=== PATIENT | male | born 1990 | race American Indian/Alaskan Native ===

== ENCOUNTER 2020-07-28 18:36 | Emergency (ER) | payer BC ==
[2020-07-28 18:59] VITALS: BP 163/102
[2020-07-28] MEDS ORDERED: ACETAMINOPHEN 500 MG TAB PO ONE (19:02)
--- NOTE | 2020-07-28 19:54 | Event Note ---
ED Screening Note Date of service: 07/28/20 Time: 19:50 ED Screening Note: Pt is 30 y/o aam with hx of Cataracts to right eye who presents for blurred vision right eye worsening for past 3 days, pt denies fever , chills, no dizziness, no light headedness, no n/v, denies trauma, has not seen opht halmologist in past year. states headache is 7/10 right frontal readiatng to right eye This initial assessment/diagnostic orders/clinical plan/treatment(s) is/are subject to change based on patients health status, clinical progression and re- assessment by fellow clinical providers in the ED. Further treatment and workup at subsequent clinical providers discretion. Patient/guardian urged not to elope from the ED as their condition may be serious if not clinically assessed and managed. Initial orders include: CT Head, Tylenol
--- NOTE | 2020-07-28 20:03 | Cat Scan Report ---
CT head/brain wo con INDICATION: decreased vision headache. TECHNIQUE: Routine CT head. All CT scans at this location are performed using CT dose reduction for A RALPH by means of automated exposure control. COMPARISON: None. FINDINGS: Intracranial: Ruiz-white matter differentiation is maintained. No intracranial hemorrhage. No extra a xial collection. No hydrocephalus. No herniation. Sinuses: Paranasal sinuses and mastoid air cells are essentially clear. Orbits: Globes are intact. Calvarium: No acute fracture. IMPRESSION: 1. No acute intracranial abnormality. Signer Name: Carlos Curtis MD Signed: 07/28/2020 7:59 PM Workstation Name: [id number]
--- NOTE | 2020-07-28 20:50 | Emergency Department Report ---
ED Headache HPI - General Chief Complaint: Headache Stated Complaint: VISION LOSS IN RT EYE - History of Present Illness Initial Comments: Pt is 30 y/o aam with hx of Cataracts to right eye who presents headache with intermittent blurred vision right eye worsening for past 3 days, pt denies fever , chills, no dizziness, no light headedness, no n/v, denies trauma, has not seen head of quality in past year. states headache is 7/10 right frontal readiatng to right eye. this is typcal headache for this patient. Same location and intensity as headaches of past. Allergies/Adverse Reactions: Allergies No Known Allergies Allergy (Unverified 07/28/20 18:58) Home Medications: Ambulatory Orders Acetaminophen [Non-Aspirin Extra Strength] 1,000 mg PO Q6H PRN #30 tablet 07/28/20 Metoclopramide [Reglan] 10 mg PO Q6H PRN #30 tablet 07/28/20 diphenhydrAMINE [Benadryl CAP] 25 mg PO Q6HR PRN #30 capsule 07/28/20 ED Review of Systems ROS: Stated complaint: VISION LOSS IN RT EYE Other details as noted in HPI Constitutional: other (frontal headache ). denies: chills, fever Eyes: eye pain, vision change (blurred vision with headache ). denies: eye discharge ENT: denies: ear pain, throat pain Respiratory: denies: cough, shortness of breath, wheezing Cardiovascular: denies: chest pain, palpitations Endocrine: no symptoms reported Gastrointestinal: denies: abdominal pain, nausea, vomiting, diarrhea Genitourinary: as per HPI Musculoskeletal: denies: back pain, joint swelling, arthralgia Skin: denies: rash, lesions Neurological: headache. denies: weakness, numbness, paresthesias, confusion, vertigo Psychiatric: denies: anxiety, depression Hematological/Lymphatic: denies: easy bleeding, easy bruising ED Past Medical Hx - Past Medical History Previous Medical History?: Yes Hx Hypertension: Yes - Medications Home Medications: Home Medications Medication Instructions Recorded Confirmed Last Taken Type Acetaminophen [Non-Aspirin Extra 1,000 mg PO Q6H PRN #30 tablet 07/28/20 Unknown Rx Strength] Metoclopramide [Reglan] 10 mg PO Q6H PRN #30 tablet 07/28/20 Unknown Rx diphenhydrAMINE [Benadryl CAP] 25 mg PO Q6HR PRN #30 capsule 07/28/20 Unknown Rx ED Physical Exam - General Limitations: No Limitations General appearance: alert, in no apparent distress - Head Head exam: Present: atraumatic, normocephalic - Eye Eye exam: Present: PERRL, EOMI. Absent: conjunctival injection, nystagmus Pupils: Present: normal accommodation - Expanded Eye Exam Expanded Eyelids: Normal Inspection: Left Pupils: Regular, Round: Bilateral, Reactive: Bilateral Sclera/Conjunctival: Normal Inspection: Bilateral Posterior chamber: Deferred: Bilateral Visual acuity (R) = 20/: 40 Visual acuity (L) = 20/: 30 With correction: No IOP measured with: other (patient defers ) - ENT ENT exam: Present: mucous membranes moist - Neck Neck exam: Present: normal inspection - Respiratory Respiratory exam: Present: normal lung sounds bilaterally. Absent: respiratory distress, wheezes, stridor - Cardiovascular Cardiovascular Exam: Present: regular rate, normal rhythm, normal heart sounds. Absent: systolic murmur, diastolic murmur, rubs, gallop - GI/Abdominal GI/Abdominal exam: Present: soft, normal bowel sounds - Rectal Rectal exam: Present: deferred - Extremities Exam Extremities exam: Present: normal inspection - Back Exam Back exam: Present: normal inspection, full ROM. Absent: tenderness - Neurological Exam Neurological exam: Present: alert, oriented X3, CN II-XII intact, normal gait, reflexes normal. Absent: motor sensory deficit - Expanded Neurological Exam Expanded Patient oriented to: Present: person, place, time Speech: Present: fluid speech Cranial nerves: EOM's Intact: Normal, Facial Sensation: Normal Motor strength exam: RUE: 5, LUE: 5, RLE: 5, LLE: 5 Best Eye Response ([place]): (4) open spontaneously Best Motor Response ([place]): (6) obeys commands Best Verbal Response ([place]): (5) oriented [place] Total: 15 - Psychiatric Psychiatric exam: Present: normal affect, normal mood - Skin Skin exam: Present: warm, dry, intact, normal color. Absent: rash ED Course Vital Signs 07/28/20 18:58 Temperature 98.2 F Pulse Rate 91 H Respiratory 16 Rate Blood Pressure 163/102 [Right] O2 Sat by Pulse 100 Oximetry ED Medical Decision Making - Radiology Data Radiology results: report reviewed, image reviewed CT Head normal, no abnormality , - Medical Decision Making CT head normal, there has been no acute injury or trauma, pt has had problem for 2 years, symptoms worsen with headache, eye exam: perrla, eomi, conjunctivae normal, visual acuity 20/40 right, 20/30 left, pt decline IOP assessment, plan follow up with ophthalmology tomorrow, symptoms are improved to 2/10 at this time. Bp noted on arrival, pt denies headache hx , plan: Tylenol, Benadryl prn headache, follow up with ophthalmology tomorrow, pt verbalized agreement and understanding of discharge plan. Critical care attestation.: If time is entered above; I have spent that time in minutes in the direct care of this critically ill patient, excluding procedure time. ED Disposition Clinical Impression: Headache Qualifiers: Headache type: unspecified Headache chronicity pattern: acute headache Intractability: not intractable Qualified Code(s): R51.9 - Headache, unspecified History of cataract extraction Qualifiers: Laterality: right Qualified Code(s): Z98.41 - Cataract extraction status, right eye Disposition: TO HOME OR SELFCARE Is pt being admited?: No Does the pt Need Aspirin: No Condition: Stable Instructions: Migraine Headache, [id number] Prescriptions: diphenhydrAMINE [Benadryl CAP] 25 mg PO Q6HR PRN #30 capsule PRN Reason: Headache Acetaminophen [Non-Aspirin Extra Strength] 1,000 mg PO Q6H PRN #30 tablet PRN Reason: Headache Metoclopramide [Reglan] 10 mg PO Q6H PRN #30 tablet PRN Reason: Headache Referrals: ABIMBOLA BELLO MD [Staff Physician] - 3-5 Days Forms: Work/School Release Form(ED) Time of Disposition: 21:01
== END 2020-07-28 21:07 | disposition home or self-care (01) ==
LOC: ED 18:36
DX: R51.9 Headache, unspecified (principal); I10 Essential (primary) hypertension; Z79.899 Other long term (current) drug therapy; Z98.41 Cataract extraction status, right eye
CPT/HCPCS: 70450

== ENCOUNTER 2020-08-03 15:56 | Outpatient (CLI) | payer BC ==
[2020-08-03 17:01] LABS: Eosinophils # (Auto) 0.1 K/mm3 (0.0-0.4); Eosinophils % (Auto) 1.9 % (0.0-4.3); Hematocrit 43.7 % (35.5-45.6); Hemoglobin 14.4 gm/dl (11.8-15.2); Lymphocytes % (Auto) 41.5 % (13.4-35.0); Mean Corpuscular HGB Conc 33 % (32-34); Mean Corpuscular Volume 90 fl (84-94); Monocytes # (Auto) 0.4 K/mm3 (0.0-0.8); Monocytes % (Auto) 7.9 % (0.0-7.3); Platelet Count 185 K/mm3 (140-440); Red Blood Count 4.88 M/mm3 (3.65-5.03); Red Cell Distribution Width 13.2 % (13.2-15.2)
[2020-08-03 17:13] LABS: Alanine Aminotransferase 14 units/L (7-56); Albumin 4.8 g/dL (3.9-5); BUN/Creatinine Ratio 14; Blood Urea Nitrogen 14 mg/dL (9-20); Calcium 9.6 mg/dL (8.4-10.2); Hemolysis Index 8
[2020-08-03 17:32] LABS: Erythrocyte Sedimentation Rate 2 mm/Hr (0-20)
== END 2020-08-03 15:57 | disposition home or self-care (01) ==
LOC: LAB 15:56
PROVIDERS: ATTEND Specialist
DX: G35 Multiple sclerosis (principal)
CPT/HCPCS: 36415; 80053; 82164; 82306; 82607; 83921; 84443; 85025; 85652; 86038; 86225; 86431; 86592; 86689